=== PATIENT | female | born 2000 | race Caucasian/White ===

== ENCOUNTER 2023-11-05 08:39 | Outpatient (CLI) | payer OTHER ==
--- NOTE | 2023-11-05 13:19 | XRAY Report ---
PROCEDURE: Knee 4+V RT INDICATIONS: RIGHT KNEE PAIN TECHNIQUE: 4 views of the knee(s) were acquired. COMPARISON: MRI knee 07/15/2016 FINDINGS: Bones: No fractures or dislocations. No suspicious bony lesions. Soft tissues: Minimal knee joint effusion. No suspicious soft tissue calcifications or masses. IMPRESSION: Minimal effusion. No visualized acute fracture or dislocation. However, occult injury cannot be exclu ded. Recommend short interval imaging follow-up in 7-10 days as clinically indicated for additional e valuation. Reviewed by: Tara Rodriguez MD on 11/05/2023 1:17 PM PST Approved by: Tara Rodriguez MD on 11/05/2023 1:17 PM [facility] Station ID: [id number]
== END 2023-11-05 08:40 | disposition home or self-care (01) ==
LOC: DI 08:39
PROVIDERS: ATTEND Registered Nurse
DX: M25.561 Pain in right knee (principal); M25.461 Effusion, right knee

== ENCOUNTER 2023-11-17 09:17 | Outpatient (CLI) | payer OTHER ==
--- NOTE | 2023-11-18 10:55 | MRI Report ---
PROCEDURE: Knee RT WO INDICATIONS: PAIN IN RIGHT KNEE TECHNIQUE: Noncontrast sagittal PD fast spin echo and T2 fast spin echo with fat saturation, sagittal 3-D gradie nt sequence with fat saturation; coronal T1 spin echo and PD fast spin echo with fat saturation, and axial PD fast spin echo with fat saturation through the knee. COMPARISON: X-ray right knee, 11/05/2023. MRI right knee, 07/15/2016. FINDINGS: Image quality: Satisfactory. Menisci: The medial and lateral menisci demonstrate normal morphology and internal signal. The meni scal root ligaments appear intact. There is a 4 mm cyst adjacent to the anterior horn the lateral me niscus (series 6 image 22), which was present on the last exam measuring 8 mm. In addition, there is a 5 mm parameniscal cysts consistent with the posterior horn the lateral meniscus (series 6 image 26) . This cyst is new. Cruciate ligaments: The anterior and posterior cruciate ligaments appear intact. Medial structures: The medial collateral ligament appears intact. The semimembranosus tendon insert ions and meniscocapsular junction appear intact. Visualized portions of the pes anserinus tendons ap pear normal. No abnormal bursal fluid. Lateral structures: The lateral collateral ligament, long and short heads of the biceps femoris tend on appear intact. The popliteus tendon appears normal. Iliotibial band appears normal. Anterior structures: The quadriceps and patellar tendons appear intact. Patellar alignment is jesus l. No femoral trochlear dysplasia or ventral trochlear prominence. No edema in the infrapatellar fa t pad. Bones and cartilage: No bone marrow contusions or fractures. Mild fibrillation involving the medial facet of patella, both medial and lateral femorotibial compartment with preserved cartilage thickness . Joint space: There is small knee joint effusion. No Hugo's cyst. Normal appearing synovial plicae are incidentally noted. IMPRESSION: 1. A couple of small parameniscal cysts, one adjacent to the anterior horn and one adjacent to the po sterior horn the lateral meniscus. No definitive meniscal tear. 2. 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 The overall cartilage thickness is normal. 3. Small knee joint effusion. Reviewed by: Nikia Nettles MD on 11/18/2023 10:54 AM PST Approved by: Nikia Nettles MD on 11/18/2023 10:54 AM [facility] Station ID: [id number]
== END 2023-11-17 09:18 | disposition home or self-care (01) ==
LOC: DI 09:17
PROVIDERS: ATTEND Registered Nurse
DX: M23.041 Cystic meniscus, anterior horn of lateral meniscus, right knee (principal); M23.021 Cystic meniscus, posterior horn of medial meniscus, right knee; M94.8X6 Other specified disorders of cartilage, lower leg; M25.461 Effusion, right knee